=== PATIENT | male | born 1995 | race Caucasian/White ===

== ENCOUNTER 2017-04-17 15:43 | Emergency (ER) | END 2017-04-17 16:37 | disposition home or self-care (01) ==

== ENCOUNTER 2018-10-16 21:42 | Emergency (ER) | payer SELFPAY ==
[~2018-10-16] VITALS: Ht 182.9 cm; Wt 133.1 kg
[~2018-10-16 21:42] MED LIST: DOXY100T20 PO; IBUP-1542 PO
[2018-10-16 21:51] VITALS: Ht 182.9 cm; Wt 133.1 kg
[2018-10-16] MEDS ORDERED: DIPHTH/TET/ACEL PERTUSS (ADULT) 0.5 ML VIAL IM* ONE (23:00)
[2018-10-16 23:20] VITALS: BP 142/72; PULSE 94; RESP 17
== END 2018-10-16 23:20 | disposition home or self-care (01) ==
LOC: FTE 21:42
DX: S90.414A Abrasion, right lesser toe(s), initial encounter (principal); W45.0XXA Nail entering through skin, initial encounter; Y92.9 Unspecified place or not applicable; Z23 Encounter for immunization
CPT/HCPCS: 90471; 90715